=== PATIENT | female | born 2005 | race Two or more races ===

== ENCOUNTER 2024-02-27 14:18 | Emergency (ER) | payer OTHER ==
[~2024-02-27] VITALS: Ht 165.1 cm; Wt 122.5 kg
[2024-02-27] MEDS ORDERED: NEXIUM40 M1 PO (15:14)
== END 2024-02-27 18:15 | disposition home or self-care (01) ==
LOC: ER 14:18 → EMR PED 14:38 → ER 14:38 → EMR PED 18:15
DX: S96.811A Strain of other specified muscles and tendons at ankle and foot level, right foot, initial encounter (principal); W01.0XXA Fall on same level from slipping, tripping and stumbling without subsequent striking against object, initial encounter; Y93.89 Activity, other specified; Y92.89 Other specified places as the place of occurrence of the external cause